=== PATIENT | female | born 1980 | race Caucasian/White ===

== ENCOUNTER 2017-03-12 23:59 | Emergency (ER) | payer MEDICAID ==
[2012-03-20 14:16] VITALS: BMI 32.6
== END 2017-03-13 04:50 | disposition home or self-care (01) ==
LOC: D.ER 23:59
DX: S62.306A Unspecified fracture of fifth metacarpal bone, right hand, initial encounter for closed fracture (principal); Y04.2XXA Assault by strike against or bumped into by another person, initial encounter; Y93.89 Activity, other specified; Y92.89 Other specified places as the place of occurrence of the external cause

== ENCOUNTER 2017-03-24 17:31 | Emergency (ER) | payer MEDICAID ==
[2012-03-20 14:16] VITALS: BMI 32.6
== END 2017-03-24 18:40 | disposition home or self-care (01) ==
LOC: D.ER 17:31
DX: R51 Headache (principal); S42.391 Other fracture of shaft of right humerus; X58.XXXD Exposure to other specified factors, subsequent encounter; F17.200 Nicotine dependence, unspecified, uncomplicated

== ENCOUNTER 2017-04-22 17:00 | Emergency (ER) | payer MEDICAID ==
[2012-03-20 14:16] VITALS: BMI 32.6
== END 2017-04-22 17:01 | disposition left against medical advice (07) ==
LOC: D.ER 17:00
DX: Z02.9 Encounter for administrative examinations, unspecified (principal)

== ENCOUNTER → 2017-04-23 11:31 | Emergency (ER) | payer MEDICAID ==
[2012-03-20 14:16] VITALS: BMI 32.6
[2017-04-23 14:14] LABS: APPEARANCE CLEAR (CLEAR); BACTERIA MODERATE /hpf (NONE SEEN); BILIRUBIN NEGATIVE (NEGATIVE); COLOR YELLOW (YELLOW); EPITHELIAL CELLS 0-5 /hpf (0-5); GLUCOSE NEGATIVE (NEGATIVE); KETONE NEGATIVE (NEGATIVE); LEUKOCYTE ESTERASE TRACE (NEGATIVE); MUCUS <1+ /lpf (NONE SEEN); NITRITE NEGATIVE (NEGATIVE); PROTEIN NEGATIVE (NEGATIVE); SPECIFIC GRAVITY 1.005 (1.005-1.020); UROBILINOGEN NORMAL (NORMAL); WHITE CELLS - URINE 0-5 /hpf (0-5)
== END | disposition home or self-care (01) ==
LOC: D.ER 11:31
PROVIDERS: Emergency Medicine
DX: M54.5 Low back pain (principal)

== ENCOUNTER → 2017-08-24 | Emergency (ER) | payer MEDICAID ==
[2012-03-20 14:16] VITALS: BMI 32.6
== END | disposition home or self-care (01) ==
LOC: D.ER 09:01
DX: S71.152A Open bite, left thigh, initial encounter (principal); W54.0XXA Bitten by dog, initial encounter; Y93.89 Activity, other specified; Y92.029 Unspecified place in mobile home as the place of occurrence of the external cause; F90.9 Attention-deficit hyperactivity disorder, unspecified type; B19.20 Unspecified viral hepatitis C without hepatic coma; F17.200 Nicotine dependence, unspecified, uncomplicated

== ENCOUNTER 2017-08-28 19:24 | Emergency (ER) | payer MEDICAID ==
[2012-03-20 14:16] VITALS: BMI 32.6
== END 2017-08-28 23:09 | disposition left against medical advice (07) ==
LOC: D.ER 19:24
DX: S89.90XA Unspecified injury of unspecified lower leg, initial encounter (principal); X58.XXXA Exposure to other specified factors, initial encounter; Y93.89 Activity, other specified; Y92.89 Other specified places as the place of occurrence of the external cause

== ENCOUNTER 2017-08-29 03:15 | Emergency (ER) | payer MEDICAID ==
[2012-03-20 14:16] VITALS: BMI 32.6
== END 2017-08-29 05:35 | disposition home or self-care (01) ==
LOC: D.ER 03:15
DX: L03.116 Cellulitis of left lower limb (principal); S81.852A Open bite, left lower leg, initial encounter; W54.0XXA Bitten by dog, initial encounter; Y93.89 Activity, other specified; Y92.029 Unspecified place in mobile home as the place of occurrence of the external cause; F90.9 Attention-deficit hyperactivity disorder, unspecified type; B19.20 Unspecified viral hepatitis C without hepatic coma; F43.10 Post-traumatic stress disorder, unspecified; F17.200 Nicotine dependence, unspecified, uncomplicated

== ENCOUNTER 2017-10-27 18:37 | Emergency (ER) | payer MEDICAID ==
[2012-03-20 14:16] VITALS: BMI 32.6
[2017-10-27 19:36] LABS: BASOPHILS 0.2 % (0-2); HEMATOCRIT 39.7 % (36.0-48.0); HEMOGLOBIN 13.6 g/dL (12-16); IMMATURE GRANULOCYTES 0.2 % (0-5); LYMPHOCYTES 38.9 % (15-50); MCH 32.1 pg (26.0-34.0); MCHC 34.3 g/dL (31.0-37.0); MCV 93.6 fL (80.0-100.0); MEAN PLATELET VOLUME 11.3 fL (7.4-10.4); MONOCYTES 7.6 % (2-11); NEUTROPHILS 51.1 % (40-80); RBC 4.24 10x6/uL (4.00-5.40); RDW 12.6 % (11.5-14.5); WBC 10.1 10x3/uL (4.8-10.8)
[2017-10-27 19:45] LABS: PLATELET COUNT 215 10x3/uL (130-400)
[2017-10-27 19:50] LABS: ALBUMIN 3.7 g/dL (3.4-5.0); BILIRUBIN - TOTAL 0.33 mg/dL (0.2-1.3); CARBON DIOXIDE 24.4 mmol/L (21.0-32.0); CREATININE - SERUM 0.9 mg/dL (0.6-1.3); POTASSIUM - SERUM 3.4 mmol/L (3.5-5.1); PROTEIN - SERUM 7.5 g/dL (6.4-8.2)
== END 2017-10-27 22:15 | disposition home or self-care (01) ==
LOC: D.ER 18:37
PROVIDERS: Family Medicine
DX: S83.92XA Sprain of unspecified site of left knee, initial encounter (principal); V49.9XXA Car occupant (driver) (passenger) injured in unspecified traffic accident, initial encounter; Y93.89 Activity, other specified; Y92.410 Unspecified street and highway as the place of occurrence of the external cause; S29.012A Strain of muscle and tendon of back wall of thorax, initial encounter; S16.1XXA Strain of muscle, fascia and tendon at neck level, initial encounter; F17.200 Nicotine dependence, unspecified, uncomplicated; F90.9 Attention-deficit hyperactivity disorder, unspecified type; B19.20 Unspecified viral hepatitis C without hepatic coma

== ENCOUNTER 2017-12-28 08:41 | Emergency (ER) | payer MEDICAID ==
[2012-03-20 14:16] VITALS: BMI 32.6
[2017-12-28 09:27] LABS: APPEARANCE CLEAR (CLEAR); COLOR YELLOW (YELLOW)
[2017-12-28 09:28] LABS: BILIRUBIN NEGATIVE (NEGATIVE); GLUCOSE NEGATIVE (NEGATIVE); KETONE NEGATIVE (NEGATIVE); NITRITE NEGATIVE (NEGATIVE); PROTEIN NEGATIVE (NEGATIVE); SPECIFIC GRAVITY 1.005 (1.005-1.020); UROBILINOGEN NORMAL (NORMAL)
[2017-12-28 09:29] LABS: BACTERIA NONE SEEN /hpf (NONE SEEN); EPITHELIAL CELLS 0-5 /hpf (0-5); RED CELLS - URINE 0-5 /hpf (0-5); WHITE CELLS - URINE 0-5 /hpf (0-5)
== END 2017-12-28 09:30 | disposition home or self-care (01) ==
LOC: D.ER 08:41
PROVIDERS: Family Medicine
DX: M54.5 Low back pain (principal); M25.511 Pain in right shoulder; S43.401A Unspecified sprain of right shoulder joint, initial encounter; X58.XXXA Exposure to other specified factors, initial encounter; Y93.89 Activity, other specified; Y92.89 Other specified places as the place of occurrence of the external cause; F90.9 Attention-deficit hyperactivity disorder, unspecified type; B19.20 Unspecified viral hepatitis C without hepatic coma; F17.200 Nicotine dependence, unspecified, uncomplicated

== ENCOUNTER 2018-01-03 11:20 | Emergency (ER) | payer MEDICAID ==
[2012-03-20 14:16] VITALS: BMI 32.6
== END 2018-01-03 13:52 | disposition home or self-care (01) ==
LOC: D.ER 11:20
DX: M25.511 Pain in right shoulder (principal); F90.9 Attention-deficit hyperactivity disorder, unspecified type; B19.20 Unspecified viral hepatitis C without hepatic coma; F17.200 Nicotine dependence, unspecified, uncomplicated

== ENCOUNTER 2018-01-17 07:25 | Emergency (ER) | payer MEDICAID | END 2018-01-17 08:20 | disposition home or self-care (01) | LOC: D.ER 07:25 | DX: S49.81XA Other specified injuries of right shoulder and upper arm, initial encounter (principal); X58.XXXA Exposure to other specified factors, initial encounter; Y93.89 Activity, other specified; Y92.89 Other specified places as the place of occurrence of the external cause; F17.200 Nicotine dependence, unspecified, uncomplicated; F90.9 Attention-deficit hyperactivity disorder, unspecified type; B19.20 Unspecified viral hepatitis C without hepatic coma ==

== ENCOUNTER → 2018-01-25 | Emergency (ER) | payer MEDICAID ==
[2012-03-20 14:16] VITALS: BMI 32.6
[2018-01-25 09:04] LABS: HCG SERUM NEGATIVE (NEGATIVE)
[2018-01-25 09:30] LABS: APPEARANCE CLOUDY (CLEAR); BILIRUBIN NEGATIVE (NEGATIVE); COLOR YELLOW (YELLOW); GLUCOSE NEGATIVE (NEGATIVE); KETONE NEGATIVE (NEGATIVE); NITRITE NEGATIVE (NEGATIVE); PROTEIN NEGATIVE (NEGATIVE); UROBILINOGEN NORMAL (NORMAL)
[2018-01-25 09:31] LABS: BACTERIA MODERATE /hpf (NONE SEEN); EPITHELIAL CELLS 0-5 /hpf (0-5); RED CELLS - URINE 0-5 /hpf (0-5); WHITE CELLS - URINE 0-5 /hpf (0-5)
== END | disposition home or self-care (01) ==
LOC: D.ER 07:56
PROVIDERS: Family Medicine
DX: M54.5 Low back pain (principal); G89.29 Other chronic pain; N76.0 Acute vaginitis; B96.89 Other specified bacterial agents as the cause of diseases classified elsewhere; F90.9 Attention-deficit hyperactivity disorder, unspecified type; B19.20 Unspecified viral hepatitis C without hepatic coma; F17.200 Nicotine dependence, unspecified, uncomplicated

== ENCOUNTER 2018-02-05 12:51 | Emergency (ER) | payer MEDICAID ==
[2012-03-20 14:16] VITALS: BMI 32.6
== END 2018-02-05 15:03 | disposition home or self-care (01) ==
LOC: D.ER 12:51
DX: S43.401A Unspecified sprain of right shoulder joint, initial encounter (principal); V89.2XXA Person injured in unspecified motor-vehicle accident, traffic, initial encounter; Y93.89 Activity, other specified; Y92.410 Unspecified street and highway as the place of occurrence of the external cause; F17.200 Nicotine dependence, unspecified, uncomplicated

== ENCOUNTER 2018-02-14 10:55 | Emergency (ER) | payer MEDICAID ==
[2012-03-20 14:16] VITALS: BMI 32.6
== END 2018-02-14 14:06 | disposition home or self-care (01) ==
LOC: D.ER 10:55
DX: T40.2X5A Adverse effect of other opioids, initial encounter (principal); Y92.019 Unspecified place in single-family (private) house as the place of occurrence of the external cause; F90.9 Attention-deficit hyperactivity disorder, unspecified type

== ENCOUNTER 2018-05-10 20:50 | Emergency (ER) | payer MEDICAID ==
[~2018-05-10] VITALS: Ht 172.7 cm; Wt 95.5 kg
[2018-05-10 21:00] VITALS: Ht 172.7 cm; Wt 95.5 kg
[2018-05-10] MEDS ORDERED: INDERAL10 MG PO (21:02)
[2018-05-10] MEDS ORDERED: ATIVAN1 MG PO (21:03)
[2018-05-10] MEDS ORDERED: SEROQUEL100 MG PO (21:03)
[2018-05-10] MEDS ORDERED: EPIPEN0.3 MG/0.3 IM (23:08)
[2018-05-10] MEDS ORDERED: PREDNISONE20 MG PO (23:09)
[2018-05-10 23:23] VITALS: BP 135/82
== END 2018-05-10 23:23 | disposition home or self-care (01) ==
LOC: D.ER 20:50
DX: L50.9 Urticaria, unspecified (principal); T78.3XXA Angioneurotic edema, initial encounter; F17.200 Nicotine dependence, unspecified, uncomplicated

== ENCOUNTER 2018-10-02 16:22 | Emergency (ER) | payer MEDICAID ==
[~2018-10-02] VITALS: Ht 172.7 cm; Wt 96.4 kg
[~2018-10-02 16:22] MED LIST: ATIVAN1 MG PO; EPIPEN0.3 MG/0.3 IM; INDERAL10 MG PO; PREDNISONE20 MG PO; SEROQUEL100 MG PO
[2018-10-02 16:27] VITALS: Ht 172.7 cm; Wt 96.4 kg
[2018-10-02] MEDS ORDERED: BACTRIM DS1 TAB PO (16:50)
[2018-10-02] MEDS ORDERED: MUPIROCIN22 GM TOPICAL (16:50)
[2018-10-02 17:00] VITALS: BP 124/75
== END 2018-10-02 17:00 | disposition home or self-care (01) ==
LOC: D.ER 16:22
DX: L02.512 Cutaneous abscess of left hand (principal); Z85.41 Personal history of malignant neoplasm of cervix uteri; Z85.42 Personal history of malignant neoplasm of other parts of uterus; F17.200 Nicotine dependence, unspecified, uncomplicated